=== PATIENT | female | born 1985 | race Caucasian/White ===

== ENCOUNTER 2018-01-22 21:50 | Emergency (ER) | payer BC ==
--- NOTE | 2018-01-22 22:18 | EDM.PDOC ---
ED HPI GENERAL MEDICAL PROBLEM - General Chief Complaint: General Stated Complaint: FEVER/ABDOMINAL PAIN Time Seen by Provider: 01/22/18 22:16 - History of Present Illness INITIAL COMMENTS - FREE TEXT/NARRATIVE: HISTORY AND PHYSICAL: History of present illness: Patient is a 32-year-old white female presents with a concern of left groin/hip pain she states it feels like a bony pain and denies urinary symptoms no vaginal discharge or irregular bleeding last normal menstrual period was 10 days prior she denies trauma denies back pain Review of systems: As per history of present illness and below otherwise all systems reviewed and negative. Past medical history: As per history of present illness and as reviewed below otherwise noncontributory. Surgical history: As per history of present illness and as reviewed below otherwise noncontributory. Social history: No reported history of drug or alcohol abuse. Family history: As per history of present illness and as reviewed below otherwise noncontributory. Physical exam: HEENT: Atraumatic, normocephalic, pupils reactive, negative for conjunctival pallor or scleral icterus, mucous membranes moist, throat clear, neck supple, nontender, trachea midline. Lungs: Clear to auscultation, breath sounds equal bilaterally, chest nontender. Heart: S1S2, regular, negative for clicks, rubs, or JVD. Abdomen: Soft, nondistended, nontender. Negative for masses or hepatosplenomegaly. Negative for costovertebral tenderness. Pelvis: Stable nontender. Genitourinary: Deferred. Rectal: Deferred. Extremities: Atraumatic, negative for cords or calf pain. Neurovascular unremarkable. Neuro: Awake, alert, oriented. Cranial nerves II through XII unremarkable. Cerebellum unremarkable. Motor and sensory unremarkable throughout. Exam nonfocal. Diagnostics: CBC CMP UA hCG pelvic x-ray Therapeutics: None Impression: #1 left groin/hip pain etiology be determined Definitive disposition and diagnosis as appropriate pending reevaluation and review of above. Left Groin Pain Score (Numeric/FACES): 5 - Related Data Allergies Allergy/AdvReac Type Severity Reaction Status Date / Time cefaclor [From [facility]] Allergy Hives Verified 09/27/16 21:21 antibiotic Allergy Hives Uncoded 09/27/16 21:21 Home Meds: Home Meds Levothyroxine Sodium [Synthroid] 1 tab PO DAILY 09/27/16 [History] Past Medical History [place] History: Reports: Other (See Below) Other OB/BYN History: breast biopsy. breast cyst removal Psychiatric History: Reports: None Endocrine/Metabolic History: Reports: Hypothyroidism - Infectious Disease History Infectious Disease History: Reports: Chicken Pox - Past Surgical History GI Surgical History: Reports: Other (See Below) Social & Family History - Family History Family Medical History: Noncontributory - Tobacco Use Smoking Status *Q: Never Smoker ED ROS GENERAL - Review of Systems Review Of Systems: ROS reveals no pertinent complaints other than HPI. ED EXAM, GENERAL - Physical Exam Exam: See Below (Dictation) Course - Vital Signs Last Recorded V/S: Last Vital Signs Temp 36.8 C 01/22/18 22:13 Pulse 110 H 01/22/18 22:13 Resp 12 01/22/18 22:13 BP 130/84 01/22/18 22:13 Pulse Ox 97 01/22/18 22:13 - Orders/Labs/Meds Orders: Active Orders 24 hr Category Date Time Status Pelvis 1V or 2V [CR] Stat Exams 01/22/18 22:15 Taken Labs: Laboratory Tests 01/22/18 01/22/18 01/22/18 Range/Units 22:20 22:20 22:30 WBC 15.22 H (4.0-11.0) K/uL RBC 4.19 L (4.30-5.90) M/uL Hgb 12.9 (12.0-16.0) g/dL Hct 37.1 (36.0-46.0) % MCV 88.5 (80.0-98.0) fL MCH 30.8 (27.0-32.0) pg MCHC 34.8 (31.0-37.0) g/dL RDW Std Deviation 39.9 (28.0-62.0) fl RDW Coeff of Victorino 13 (11.0-15.0) % Plt Count 269 (150-400) K/uL MPV 10.60 (7.40-12.00) fL Neut % (Auto) 69.2 (48.0-80.0) % Lymph % (Auto) 17.0 (16.0-40.0) % Carlton % (Auto) 12.6 (0.0-15.0) % Eos % (Auto) 1.0 (0.0-7.0) % Baso % (Auto) 0.2 (0.0-1.5) % Neut # (Auto) 10.5 H (1.4-5.7) K/uL Lymph # (Auto) 2.6 H (0.6-2.4) K/uL Carlton # (Auto) 1.9 H (0.0-0.8) K/uL Eos # (Auto) 0.2 (0.0-0.7) K/uL Baso # (Auto) 0.0 (0.0-0.1) K/uL Nucleated RBC % 0.0 /100WBC Nucleated RBCs # 0 K/uL Sodium (136-145) mmol/L Potassium (3.5-5.1) mmol/L Chloride (98-107) mmol/L Carbon Dioxide (21.0-32.0) mmol/L BUN (7.0-18.0) mg/dL Creatinine (0.6-1.0) mg/dL Est Cr Clr Drug Dosing mL/min Estimated GFR (MDRD) ml/min Glucose (74-106) mg/dL Calcium (8.5-10.1) mg/dL Total Bilirubin (0.2-1.0) mg/dL AST (15-37) IU/L ALT (14-63) IU/L Alkaline Phosphatase (46-116) U/L Total Protein (6.4-8.2) g/dL Albumin (3.4-5.0) g/dL Globulin (2.0-3.5) g/dL Albumin/Globulin Ratio (1.3-2.8) Urine Color YELLOW Urine Appearance CLEAR Urine pH 5.0 (5.0-8.0) Ur Specific [place] <= 1.005 (1.001-1.035) Urine Protein NEGATIVE (NEGATIVE) mg/dL Urine Glucose (UA) NEGATIVE (NEGATIVE) mg/dL Urine Ketones NEGATIVE (NEGATIVE) mg/dL Urine Occult Blood SMALL H (NEGATIVE) Urine Nitrite NEGATIVE (NEGATIVE) Urine Bilirubin NEGATIVE (NEGATIVE) Urine Urobilinogen 0.2 (<2.0) EU/dL Ur Leukocyte Esterase NEGATIVE (NEGATIVE) Urine RBC 0-2 (0-2/HPF) Urine WBC 0-1 (0-5/HPF) Ur Epithelial Cells OCCASIONAL (NONE-FEW) Urine Bacteria RARE (NEGATIVE) Urine HCG, Qual NEGATIVE (NEGATIVE) 01/22/18 Range/Units 22:30 WBC (4.0-11.0) K/uL RBC (4.30-5.90) M/uL Hgb (12.0-16.0) g/dL Hct (36.0-46.0) % MCV (80.0-98.0) fL MCH (27.0-32.0) pg MCHC (31.0-37.0) g/dL RDW Std Deviation (28.0-62.0) fl RDW Coeff of Victorino (11.0-15.0) % Plt Count (150-400) K/uL MPV (7.40-12.00) fL Neut % (Auto) (48.0-80.0) % Lymph % (Auto) (16.0-40.0) % Carlton % (Auto) (0.0-15.0) % Eos % (Auto) (0.0-7.0) % Baso % (Auto) (0.0-1.5) % Neut # (Auto) (1.4-5.7) K/uL Lymph # (Auto) (0.6-2.4) K/uL Carlton # (Auto) (0.0-0.8) K/uL Eos # (Auto) (0.0-0.7) K/uL Baso # (Auto) (0.0-0.1) K/uL Nucleated RBC % /100WBC Nucleated RBCs # K/uL Sodium 138 (136-145) mmol/L Potassium 3.7 (3.5-5.1) mmol/L Chloride 104 (98-107) mmol/L Carbon Dioxide 24.3 (21.0-32.0) mmol/L BUN 12 (7.0-18.0) mg/dL Creatinine 0.8 (0.6-1.0) mg/dL Est Cr Clr Drug Dosing 88.79 mL/min Estimated GFR (MDRD) > 60.0 ml/min Glucose 105 (74-106) mg/dL Calcium 8.9 (8.5-10.1) mg/dL Total Bilirubin 0.4 (0.2-1.0) mg/dL AST 18 (15-37) IU/L ALT 28 (14-63) IU/L Alkaline Phosphatase 81 (46-116) U/L Total Protein 7.5 (6.4-8.2) g/dL Albumin 3.3 L (3.4-5.0) g/dL Globulin 4.2 H (2.0-3.5) g/dL Albumin/Globulin Ratio 0.8 L (1.3-2.8) Urine Color Urine Appearance Urine pH (5.0-8.0) Ur Specific [place] (1.001-1.035) Urine Protein (NEGATIVE) mg/dL Urine Glucose (UA) (NEGATIVE) mg/dL Urine Ketones (NEGATIVE) mg/dL Urine Occult Blood (NEGATIVE) Urine Nitrite (NEGATIVE) Urine Bilirubin (NEGATIVE) Urine Urobilinogen (<2.0) EU/dL Ur Leukocyte Esterase (NEGATIVE) Urine RBC (0-2/HPF) Urine WBC (0-5/HPF) Ur Epithelial Cells (NONE-FEW) Urine Bacteria (NEGATIVE) Urine HCG, Qual (NEGATIVE) Departure - Departure Time of Disposition: 23:40 Disposition: Home, Self-Care 01 Condition: Good Clinical Impression: Left groin pain, Encounter for medical screening examination - Discharge Information Referrals: Mame Christian DO [Primary Care Provider] - Forms: ED Department Discharge Additional Instructions: The following information is given to patients seen in the emergency department who are being discharged to home. This information is to outline your options for follow-up care. We provide all patients seen in our emergency department with a follow-up referral. The need for follow-up, as well as the timing and circumstances, are variable depending upon the specifics of your emergency department visit. If you don't have a primary care physician on staff, we will provide you with a referral. We always advise you to contact your personal physician following an emergency department visit to inform them of the circumstance of the visit and for follow-up with them and/or the need for any referrals to a consulting specialist. The emergency department will also refer you to a specialist when appropriate. This referral assures that you have the opportunity for followup care with a specialist. All of these measure are taken in an effort to provide you with optimal care, which includes your followup. Under all circumstances we always encourage you to contact your private physician who remains a resource for coordinating your care. When calling for followup care, please make the office aware that this follow-up is from your recent emergency room visit. If for any reason you are refused follow-up, please contact the [facility] emergency department at and asked to speak to the emergency department charge nurse. [facility] [place] [id number] Follow-up primary medical doctor and/or clinic as discussed: Schedule routine appointment Motrin/Tylenol as directed return as needed as discussed - My Orders Last 24 Hours: My Active Orders 01/22/18 22:15 Pelvis 1V or 2V [CR] Stat - Assessment/Plan Last 24 Hours: My Active Orders 01/22/18 22:15 Pelvis 1V or 2V [CR] Stat
[2018-01-22 23:03] LABS: CHLORIDE,CL 104 mmol/L (98-107); SODIUM,NA 138 mmol/L (136-145)
[2018-01-23 01:16] VITALS: BP 127/83
--- NOTE | 2018-01-25 14:07 | CR ---
EXAM DATE: 01/22/18 PATIENT'S AGE: 32 Patient: WINIFRED STEINBERG Facility: [place], [place] Site . Site : 1985 Study: XRay Pelvis [id number]/23/2018 10:57:25 PM Ordering Physician: Kelsey Carrillo Final Report: INDICATION: Right groin pain, patient states feels like bone pain with no known injury TECHNIQUE: Pelvis radiograph 1 view right COMPARISON: None FINDINGS: Bones: No acute fractures or aggressive bone lesions are identified. Joints: The hip joint is unremarkable. The visualized sacroiliac joints are unremarkable in appearance. The pubic symphysis is normal in appearance. Soft tissues: Unremarkable. The visualized bowel gas pattern of the pelvis is unremarkable in appearance. No radiopaque foreign bodies are seen. IMPRESSION: 1. No acute osseous injuries or abnormalities are noted. Dictated by: Jace Stevens MD @ 01/22/2018 23:00:48 (Electronic Signature) Report Signed by Proxy. TG
== END 2018-01-22 23:58 | disposition home or self-care (01) ==
LOC: MW.ED 21:50
DX: R10.32 Left lower quadrant pain (principal); E03.9 Hypothyroidism, unspecified; Z88.1 Allergy status to other antibiotic agents; Z79.899 Other long term (current) drug therapy
CPT/HCPCS: 36415; 72170; 72170-26; 80053; 81001; 81025; 85025; 99283

== ENCOUNTER 2018-03-10 14:31 | Emergency (ER) | payer BC ==
[2018-03-10] MEDS ORDERED: Sodium Chloride 0.9% 10 ML Syringe FLUSH PRN (14:56)
[2018-03-10] MEDS ORDERED: Famotidine 20 MG/2 ML SDV IVPUSH ONE (14:56)
[2018-03-10] MEDS ORDERED: Sodium Chloride 0.9% 1,000 ML IV ONE (14:56)
[2018-03-10] MEDS ORDERED: Sodium Chloride 0.9% 2.5 ML Syringe FLUSH PRN (14:56)
[2018-03-10] MEDS ORDERED: Dicyclomine 10 MG Cap PO ONE (15:28)
[2018-03-10 15:45] LABS: CHLORIDE,CL 102 mmol/L (98-107); SODIUM,NA 138 mmol/L (136-145)
--- NOTE | 2018-03-10 17:54 | EDM.PDOC ---
ED HPI GENERAL MEDICAL PROBLEM - General Chief Complaint: Abdominal Pain Stated Complaint: ABDOMINAL PAIN Time Seen by Provider: 03/10/18 14:32 Source of Information: Reports: Patient History Limitations: Reports: No Limitations - History of Present Illness INITIAL COMMENTS - FREE TEXT/NARRATIVE: History of present illness: []Patient has had abdominal pain for 2 days and was seen at the walk-in clinic 2 days ago for it. The workup but the results are not back yet. Pain is worsening she states that it is in her upper abdomen radiating to her mid back. She denies any vomiting ,fevers, chills, urinary symptoms or diarrhea. She does not have a history of GERD and states she's not had this pain in the past. She does not have a family history of gallbladder disease. Review of systems: As per history of present illness and below otherwise all systems reviewed and negative. Past medical history: As per history of present illness and as reviewed below otherwise noncontributory. Surgical history: As per history of present illness and as reviewed below otherwise noncontributory. Social history: No reported history of drug or alcohol abuse. Family history: As per history of present illness and as reviewed below otherwise noncontributory. Physical exam: General: Well developed, well nourished in NAD HEENT: Atraumatic, normocephalic, pupils reactive, negative for conjunctival pallor or scleral icterus, mucous membranes moist, throat clear, neck supple, nontender, trachea midline. Lungs: Clear to auscultation, breath sounds equal bilaterally, chest nontender. Heart: S1S2, regular, negative for clicks, rubs, or JVD. Abdomen: Soft, nondistended, right upper quadrant and epigastric tenderness without rebound or guarding. Negative for masses or hepatosplenomegaly. Negative for costovertebral tenderness. Pelvis: Stable nontender. Genitourinary: Deferred. Rectal: Deferred. Extremities: Atraumatic, negative for cords or calf pain. Neurovascular unremarkable. Neuro: Awake, alert, oriented. Cranial nerves II through XII unremarkable. Cerebellum unremarkable. Motor and sensory unremarkable throughout. Exam nonfocal. Diagnostics: []CBC shows an elevated white count 17,000 without a shift, be due to stressed margination, chemistries are negative including normal LFTs, Radha and lipase are also normal, ultrasound of the abdomen showed cholelithiasis without cholecystitis Therapeutics: []Patient was given Bentyl and Zofran and IV Pepcid with improvement Impression: [] Cholelithiasis without cholecystitis on ultrasound Plan: []Follow-up with general surgery, decrease fatty foods, dental for pain return to ER if symptoms worsen, fevers or vomiting occur. Definitive disposition and diagnosis as appropriate pending reevaluation and review of above. Abdominal Pain Score (Numeric/FACES): 9 - Related Data Allergies Allergy/AdvReac Type Severity Reaction Status Date / Time cefaclor [From Ceclor] Allergy Hives Verified 09/27/16 21:21 antibiotic Allergy Hives Uncoded 09/27/16 21:21 Home Meds: Home Meds Levothyroxine Sodium [Synthroid] 1 tab PO DAILY 09/27/16 [History] Dicyclomine [Bentyl] 10 mg PO TID PRN #20 cap 03/10/18 [Rx] Past Medical History Cardiovascular History: Reports: None Respiratory History: Reports: None Gastrointestinal History: Reports: None Genitourinary History: Reports: None SCOUT History: Reports: Other (See Below) Other OB/BYN History: breast biopsy. breast cyst removal Musculoskeletal History: Reports: None Neurological History: Reports: None Psychiatric History: Reports: None Endocrine/Metabolic History: Reports: Hypothyroidism Hematologic History: Reports: None Immunologic History: Reports: None Oncologic (Cancer) History: Reports: None Dermatologic History: Reports: None - Infectious Disease History Infectious Disease History: Reports: Chicken Pox - Past Surgical History Head Surgeries/Procedures: Reports: None HEENT Surgical History: Reports: Oral Surgery GI Surgical History: Reports: None, Other (See Below) Female Surgical History: Reports: Breast Biopsy, Other (See Below) Other Female Surgeries/Procedures: laparoscopy to check for endometriosis Social & Family History - Family History Family Medical History: Noncontributory - Tobacco Use Smoking Status *Q: Never Smoker Second Hand Smoke Exposure: No - Caffeine Use Caffeine Use: Reports: Coffee, Energy Drinks, Soda, Tea - Recreational Drug Use Recreational Drug Use: No ED ROS GENERAL - Review of Systems Review Of Systems: See Below (See history of present illness) ED EXAM, GI/ABD - Physical Exam Exam: See Below (See history of present illness) Course - Vital Signs Last Recorded V/S: Last Vital Signs Temp 98.8 F 03/10/18 14:41 Pulse 98 03/10/18 14:41 Resp 18 03/10/18 14:41 BP 143/99 H 03/10/18 14:41 Pulse Ox 100 03/10/18 14:41 - Orders/Labs/Meds Orders: Active Orders 24 hr Category Date Time Status Abdomen Ltd [US] Stat Exams 03/10/18 15:51 Taken HCG QUALITATIVE,URINE [URCHEM] Stat Lab 03/10/18 15:05 Ordered UA W/MICROSCOPIC [URIN] Stat Lab 03/10/18 15:05 Ordered Sodium Chloride 0.9% [Saline Flush] Med 03/10/18 14:56 Active 10 ml FLUSH ASDIRECTED PRN Sodium Chloride 0.9% [Saline Flush] Med 03/10/18 14:56 Active 2.5 ml FLUSH ASDIRECTED PRN Saline Lock Insert [OM.PC] Stat Oth 03/10/18 14:56 Ordered Medication Orders Sodium Chloride (Saline Flush) 10 ml FLUSH ASDIRECTED PRN PRN Reason: Keep Vein Open Last Admin: 03/10/18 15:32 Dose: 10 ml Sodium Chloride (Saline Flush) 2.5 ml FLUSH ASDIRECTED PRN PRN Reason: Keep Vein Open Last Admin: 03/10/18 15:32 Dose: 2.5 ml Labs: Laboratory Tests 03/10/18 03/10/18 03/10/18 Range/Units 15:05 15:05 15:07 WBC 17.22 H (4.0-11.0) K/uL RBC 4.70 (4.30-5.90) M/uL Hgb 14.7 (12.0-16.0) g/dL Hct 41.7 (36.0-46.0) % MCV 88.7 (80.0-98.0) fL MCH 31.3 (27.0-32.0) pg MCHC 35.3 (31.0-37.0) g/dL RDW Std Deviation 41.3 (28.0-62.0) fl RDW Coeff of Vcitorino 13 (11.0-15.0) % Plt Count 283 (150-400) K/uL MPV 11.00 (7.40-12.00) fL Neut % (Auto) 66.2 (48.0-80.0) % Lymph % (Auto) 18.4 (16.0-40.0) % Dane % (Auto) 13.4 (0.0-15.0) % Eos % (Auto) 1.7 (0.0-7.0) % Baso % (Auto) 0.3 (0.0-1.5) % Neut # (Auto) 11.4 H (1.4-5.7) K/uL Lymph # (Auto) 3.2 H (0.6-2.4) K/uL Dane # (Auto) 2.3 H (0.0-0.8) K/uL Eos # (Auto) 0.3 (0.0-0.7) K/uL Baso # (Auto) 0.1 (0.0-0.1) K/uL Nucleated RBC % 0.0 /100WBC Nucleated RBCs # 0 K/uL Sodium (136-145) mmol/L Potassium (3.5-5.1) mmol/L Chloride (98-107) mmol/L Carbon Dioxide (21.0-32.0) mmol/L BUN (7.0-18.0) mg/dL Creatinine (0.6-1.0) mg/dL Est Cr Clr Drug Dosing mL/min Estimated GFR (MDRD) ml/min Glucose (74-106) mg/dL Calcium (8.5-10.1) mg/dL Total Bilirubin (0.2-1.0) mg/dL AST (15-37) IU/L ALT (14-63) IU/L Alkaline Phosphatase (46-116) U/L Total Protein (6.4-8.2) g/dL Albumin (3.4-5.0) g/dL Globulin (2.0-3.5) g/dL Albumin/Globulin Ratio (1.3-2.8) Lipase (73-393) U/L Urine Color YELLOW Urine Appearance CLEAR Urine pH 5.5 (5.0-8.0) Ur Specific [place] 1.010 (1.001-1.035) Urine Protein NEGATIVE (NEGATIVE) mg/dL Urine Glucose (UA) NEGATIVE (NEGATIVE) mg/dL Urine Ketones NEGATIVE (NEGATIVE) mg/dL Urine Occult Blood MODERATE (NEGATIVE) Urine Nitrite NEGATIVE (NEGATIVE) Urine Bilirubin NEGATIVE (NEGATIVE) Urine Urobilinogen 0.2 (<2.0) EU/dL Ur Leukocyte Esterase SMALL (NEGATIVE) Urine RBC 0-2 (0-2/HPF) Urine WBC 3-5 (0-5/HPF) Ur Epithelial Cells FEW (NONE-FEW) Urine Bacteria FEW (NEGATIVE) Urine HCG, Qual NEGATIVE (NEGATIVE) 03/10/18 Range/Units 15:07 WBC (4.0-11.0) K/uL RBC (4.30-5.90) M/uL Hgb (12.0-16.0) g/dL Hct (36.0-46.0) % MCV (80.0-98.0) fL MCH (27.0-32.0) pg MCHC (31.0-37.0) g/dL RDW Std Deviation (28.0-62.0) fl RDW Coeff of Victorino (11.0-15.0) % Plt Count (150-400) K/uL MPV (7.40-12.00) fL Neut % (Auto) (48.0-80.0) % Lymph % (Auto) (16.0-40.0) % Dane % (Auto) (0.0-15.0) % Eos % (Auto) (0.0-7.0) % Baso % (Auto) (0.0-1.5) % Neut # (Auto) (1.4-5.7) K/uL Lymph # (Auto) (0.6-2.4) K/uL Dane # (Auto) (0.0-0.8) K/uL Eos # (Auto) (0.0-0.7) K/uL Baso # (Auto) (0.0-0.1) K/uL Nucleated RBC % /100WBC Nucleated RBCs # K/uL Sodium 138 (136-145) mmol/L Potassium 3.3 L (3.5-5.1) mmol/L Chloride 102 (98-107) mmol/L Carbon Dioxide 24.3 (21.0-32.0) mmol/L BUN 12 (7.0-18.0) mg/dL Creatinine 0.9 (0.6-1.0) mg/dL Est Cr Clr Drug Dosing 78.93 mL/min Estimated GFR (MDRD) > 60.0 ml/min Glucose 124 H (74-106) mg/dL Calcium 9.3 (8.5-10.1) mg/dL Total Bilirubin 0.9 (0.2-1.0) mg/dL AST 18 (15-37) IU/L ALT 23 (14-63) IU/L Alkaline Phosphatase 76 (46-116) U/L Total Protein 8.1 (6.4-8.2) g/dL Albumin 4.1 (3.4-5.0) g/dL Globulin 4.0 H (2.0-3.5) g/dL Albumin/Globulin Ratio 1.0 L (1.3-2.8) Lipase 112 (73-393) U/L Urine Color Urine Appearance Urine pH (5.0-8.0) Ur Specific [place] (1.001-1.035) Urine Protein (NEGATIVE) mg/dL Urine Glucose (UA) (NEGATIVE) mg/dL Urine Ketones (NEGATIVE) mg/dL Urine Occult Blood (NEGATIVE) Urine Nitrite (NEGATIVE) Urine Bilirubin (NEGATIVE) Urine Urobilinogen (<2.0) EU/dL Ur Leukocyte Esterase (NEGATIVE) Urine RBC (0-2/HPF) Urine WBC (0-5/HPF) Ur Epithelial Cells (NONE-FEW) Urine Bacteria (NEGATIVE) Urine HCG, Qual (NEGATIVE) Meds: Medications Generic Name Dose Route Start Last Admin Trade Name Freq PRN Reason Stop Dose Admin Sodium Chloride 10 ml 03/10/18 14:56 03/10/18 15:32 Saline Flush FLUSH 10 ml ASDIRECTED PRN Administration Keep Vein Open Sodium Chloride 2.5 ml 03/10/18 14:56 03/10/18 15:32 Saline Flush FLUSH 2.5 ml ASDIRECTED PRN Administration Keep Vein Open Discontinued Medications Generic Name Dose Route Start Last Admin Trade Name Freq PRN Reason Stop Dose Admin Dicyclomine HCl 10 mg 03/10/18 15:28 03/10/18 15:38 Bentyl PO 03/10/18 15:29 10 mg ONETIME ONE Administration Famotidine 20 mg 03/10/18 14:56 03/10/18 15:32 Pepcid IVPUSH 03/10/18 14:57 20 mg ONETIME ONE Administration Sodium Chloride 1,000 mls @ 999 mls/hr 03/10/18 14:56 03/10/18 15:31 Normal Saline IV 03/10/18 15:56 999 mls/hr .Bolus ONE Administration Departure - Departure Time of Disposition: 17:52 Disposition: Home, Self-Care 01 Condition: Good Clinical Impression: Cholelithiasis without cholecystitis - Discharge Information Prescriptions: Dicyclomine [Bentyl] 10 mg PO TID PRN #20 cap PRN Reason: Pain Referrals: Mame Christian DO [Primary Care Provider] - Ainsley Rand MD [Physician] - (Next available appointment) Forms: ED Department Discharge Additional Instructions: The following information is given to patients seen in the emergency department who are being discharged to home. This information is to outline your options for follow-up care. We provide all patients seen in our emergency department with a follow-up referral. The need for follow-up, as well as the timing and circumstances, are variable depending upon the specifics of your emergency department visit. If you don't have a primary care physician on staff, we will provide you with a referral. We always advise you to contact your personal physician following an emergency department visit to inform them of the circumstance of the visit and for follow-up with them and/or the need for any referrals to a consulting specialist. The emergency department will also refer you to a specialist when appropriate. This referral assures that you have the opportunity for follow-up care with a specialist. All of these measure are taken in an effort to provide you with optimal care, which includes your follow-up. Under all circumstances we always encourage you to contact your private physician who remains a resource for coordinating your care. When calling for follow-up care, please make the office aware that this follow-up is from your recent emergency room visit. If for any reason you are refused follow-up, please contact the [facility] Emergency Department at and asked to speak to the emergency department charge nurse. [facility] - General Surgery Professional Building [address] [place] [address], [address] [place] [address] - My Orders Last 24 Hours: My Active Orders 03/10/18 14:56 Sodium Chloride 0.9% [Saline Flush] 10 ml FLUSH ASDIRECTED PRN Sodium Chloride 0.9% [Saline Flush] 2.5 ml FLUSH ASDIRECTED PRN Saline Lock Insert [OM.PC] Stat 03/10/18 15:05 HCG QUALITATIVE,URINE [URCHEM] Stat UA W/MICROSCOPIC [URIN] Stat 03/10/18 15:51 Abdomen Ltd [US] Stat - Assessment/Plan Last 24 Hours: My Active Orders 03/10/18 14:56 Sodium Chloride 0.9% [Saline Flush] 10 ml FLUSH ASDIRECTED PRN Sodium Chloride 0.9% [Saline Flush] 2.5 ml FLUSH ASDIRECTED PRN Saline Lock Insert [OM.PC] Stat 03/10/18 15:05 HCG QUALITATIVE,URINE [URCHEM] Stat UA W/MICROSCOPIC [URIN] Stat 03/10/18 15:51 Abdomen Ltd [US] Stat
[2018-03-10 18:26] VITALS: BP 114/72
--- NOTE | 2018-03-11 15:17 | US ---
EXAM DATE: 03/10/18 PATIENT'S AGE: 32 Patient: WINIFRED STEINBERG Facility: [place], [place] Site . Site : 1985 Study: US Abdomen [id number]/9/2018 5:05:20 PM Ordering Physician: Luis Felipe Guidry Final Report: HISTORY: Abdomen pain. FINDINGS: Multiple urias scale static images from a limited OB ultrasound were evaluated. There is small echogenic shadowing gallstones in the lumen of the gallbladder. No wall thickening or pericholecystic fluid is seen. The common bile duct is 3 mm. The liver parenchyma is homogeneous in appearance. No intrahepatic ductal dilatation or mass is seen. There is no fluid in Burrows`s pouch. The right kidney measures 11.6 cm and is free of hydronephrosis. The pancreatic head and body are normal. The pancreatic tail is not well seen. IMPRESSION: 1. Cholelithiasis without evidence of cholecystitis or biliary obstruction. 2. Liver, right kidney and pancreatic head and body are normal. Pancreatic tail is obscured by bowel gas. Dictated by Layne Byrne MD @ 03/10/2018 5:40:40 PM Dictated by: Layne Byrne MD @ 03/10/2018 17:40:50 (Electronic Signature) Report Signed by Proxy. TG
== END 2018-03-10 18:05 | disposition home or self-care (01) ==
LOC: MW.ED 14:31
DX: K80.20 Calculus of gallbladder without cholecystitis without obstruction (principal); E03.9 Hypothyroidism, unspecified; Z79.899 Other long term (current) drug therapy; Z88.1 Allergy status to other antibiotic agents
CPT/HCPCS: 36415; 76705; 80053; 81001; 81025; 83690; 85025; 96361; 96374; 99284; A9270; J7040

== ENCOUNTER 2018-03-12 19:23 | Emergency (ER) | payer BC ==
--- NOTE | 2018-03-12 19:42 | EDM.PDOC ---
ED HPI GENERAL MEDICAL PROBLEM - General Chief Complaint: Abdominal Pain Stated Complaint: GALLBLADDER Time Seen by Provider: 03/12/18 19:27 - History of Present Illness INITIAL COMMENTS - FREE TEXT/NARRATIVE: HISTORY AND PHYSICAL: History of present illness: The patient is a 32-year-old female who was seen an outside clinic several days ago and was also here in our emergency department on March 10 for abdominal pain and was diagnosed with cholelithiasis. On her visit here in the ED on March 10 she had labs which revealed a WBC count of 17.22 but normal liver function tests and normal lipase. On that visit she had a gallbladder ultrasound which revealed cholelithiasis without evidence of cholecystitis or biliary obstruction and the pancreatic tail was obscured by bowel gas but otherwise the pancreas looked normal. The patient was advised to eat a low-fat diet and to follow-up with surgery. She presents again this evening to the ED with persistent epigastric right upper and right back pain despite taking the medications she was prescribed which include tramadol Bentyl. The patient has had nausea all day today but no vomiting and has not had diarrhea and is in fact slightly constipated. She has only had one piece of toast and some water at approximately 2 PM and has not been able to eat anything due to the discomfort in the nausea. She has no urinary complaints and she had a negative urine test 2 days ago. Her only abdominal surgery is of a laparoscopy for diagnosis of endometriosis which she said she had a small amount at it has not progressed. She's not had any fevers chills coughing chest pain or shortness of breath at home. She was told that they did not have an opening for her to have a cholecystectomy until April 01 she does not know if she can make it that long and is here for reevaluation. Patient says that she has an appointment with the surgeon at [facility] in [place] next week to possibly get her surgery done sooner. Review of systems: As per history of present illness and below otherwise all systems reviewed and negative. Past medical history: As per history of present illness and as reviewed below otherwise noncontributory. Surgical history: As per history of present illness and as reviewed below otherwise noncontributory. Social history: No reported history of drug or alcohol abuse. Family history: As per history of present illness and as reviewed below otherwise noncontributory. Physical exam: General: Well-developed well-nourished overweight female who is nontoxic and vital signs are reviewed by me HEENT: Atraumatic, normocephalic, negative for conjunctival pallor or scleral icterus, mucous membranes moist, throat clear, neck supple, nontender, trachea midline. Lungs: Clear to auscultation, breath sounds equal bilaterally, chest nontender. Heart: S1S2, regular, negative for clicks, rubs, or JVD. No overt murmurs appreciated Abdomen: Soft, nondistended, bowel sounds are hypoactive. There is mild tenderness in the epigastrium and right upper quadrant without rebound or guarding. Negative for masses or hepatosplenomegaly. Negative for costovertebral tenderness. Pelvis: Stable nontender. Genitourinary: Deferred. Rectal: Deferred. Extremities: Atraumatic, negative for cords or calf pain. Neurovascular unremarkable. Neuro: Awake, alert, oriented. Cranial nerves II through XII unremarkable. Cerebellum unremarkable. Motor and sensory unremarkable throughout. Exam nonfocal. Diagnostics: CBC CMP amylase and lipase All testing from March 10 was reviewed Therapeutics: IV fluids Zofran Dilaudid 2044: Testing results were discussed with Dr. Rand, who saw the patient earlier this morning, and she is aware of the significant change in elevation in the liver function tests from just 2 days ago. She says that with that presentation that the patient needs to be transferred to where there is GI and ERCP capabilities. I have made phone calls to [facility] and [facility] in [place] and both GI physicians that are telecommunications clerk this weekend do not have ERCP capabilities. I discussed all testing results with the patient and the need for transfer and she states understanding. She is currently pain-free. I discussed with her the next options which would be [facility] or [facility] in [place] and she is currently deciding. Dr. Rand does not feel that antibiotics are indicated at this point as the patient does not have a fever or an elevated white cell count 2127: The patient has chosen [facility] as her hospital of choice and I have discussed this case with Dr. Sandhu the hospitalist there who accepts the patient at this time for transfer. We will push the images of the ultrasound performed 2 days ago as well as send the labs from 2 days ago along with today' s reports. The patient's vitals are stable here and she is pain-free and we will arrange for transportation. Impression: Biliary colic with newly elevated liver function tests with history of cholelithiasis rule out common bile duct stone Definitive disposition and diagnosis as appropriate pending reevaluation and review of above. abdominal pain Pain Score (Numeric/FACES): 8 - Related Data Allergies Allergy/AdvReac Type Severity Reaction Status Date / Time cefaclor [From Ceclor] Allergy Hives Verified 03/12/18 19:39 antibiotic Allergy Hives Uncoded 03/12/18 19:39 Home Meds: Home Meds Levothyroxine Sodium [Synthroid] 1 tab PO DAILY 09/27/16 [History] Dicyclomine [Bentyl] 10 mg PO TID PRN #20 cap 03/10/18 [Rx] Ondansetron HCl [Zofran] 4 mg PO ASDIRECTED 03/12/18 [History] traMADol [Ultram] 50 mg PO Q6H PRN 03/12/18 [History] Past Medical History Cardiovascular History: Reports: None Respiratory History: Reports: None Gastrointestinal History: Reports: None Genitourinary History: Reports: None 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 breast cyst removal Musculoskeletal History: Reports: None Neurological History: Reports: None Psychiatric History: Reports: None Endocrine/Metabolic History: Reports: Hypothyroidism Hematologic History: Reports: None Immunologic History: Reports: None Oncologic (Cancer) History: Reports: None Dermatologic History: Reports: None - Infectious Disease History Infectious Disease History: Reports: Chicken Pox - Past Surgical History Head Surgeries/Procedures: Reports: None HEENT Surgical History: Reports: Oral Surgery GI Surgical History: Reports: None, Other (See Below) Female Surgical History: Reports: Breast Biopsy, Other (See Below) Other Female Surgeries/Procedures: laparoscopy to check for endometriosis Social & Family History - Family History Family Medical History: Noncontributory - Caffeine Use Caffeine Use: Reports: Coffee, Energy Drinks, Soda, Tea ED ROS GENERAL - Review of Systems Review Of Systems: ROS reveals no pertinent complaints other than HPI. ED EXAM, GENERAL - Physical Exam Exam: See Below (See dictation) Course - Vital Signs Last Recorded V/S: Last Vital Signs Temp 36.9 C 03/12/18 21:27 Pulse 90 03/12/18 21:27 Resp 16 03/12/18 21:27 BP 126/60 03/12/18 21:27 Pulse Ox 100 03/12/18 21:27 - Orders/Labs/Meds Orders: Active Orders 24 hr Category Date Time Status Sodium Chloride 0.9% [Saline Flush] Med 03/12/18 19:54 Active 10 ml FLUSH ASDIRECTED PRN Sodium Chloride 0.9% [Saline Flush] Med 03/12/18 19:54 Active 2.5 ml FLUSH ASDIRECTED PRN Saline Lock Insert [OM.PC] Stat Oth 03/12/18 19:54 Ordered Medication Orders Sodium Chloride (Saline Flush) 10 ml FLUSH ASDIRECTED PRN PRN Reason: Keep Vein Open Sodium Chloride (Saline Flush) 2.5 ml FLUSH ASDIRECTED PRN PRN Reason: Keep Vein Open Labs: Laboratory Tests 03/12/18 03/12/18 Range/Units 20:05 20:05 WBC 11.57 H (4.0-11.0) K/uL RBC 4.25 L (4.30-5.90) M/uL Hgb 13.1 (12.0-16.0) g/dL Hct 37.8 (36.0-46.0) % MCV 88.9 (80.0-98.0) fL MCH 30.8 (27.0-32.0) pg MCHC 34.7 (31.0-37.0) g/dL RDW Std Deviation 41.1 (28.0-62.0) fl RDW Coeff of Victorino 13 (11.0-15.0) % Plt Count 258 (150-400) K/uL MPV 10.60 (7.40-12.00) fL Neut % (Auto) 66.3 (48.0-80.0) % Lymph % (Auto) 20.7 (16.0-40.0) % [place] % (Auto) 10.1 (0.0-15.0) % Eos % (Auto) 2.4 (0.0-7.0) % Baso % (Auto) 0.5 (0.0-1.5) % Neut # (Auto) 7.7 H (1.4-5.7) K/uL Lymph # (Auto) 2.4 (0.6-2.4) K/uL [place] # (Auto) 1.2 H (0.0-0.8) K/uL Eos # (Auto) 0.3 (0.0-0.7) K/uL Baso # (Auto) 0.1 (0.0-0.1) K/uL Nucleated RBC % 0.0 /100WBC Nucleated RBCs # 0 K/uL Sodium 139 (136-145) mmol/L Potassium 3.4 L (3.5-5.1) mmol/L Chloride 104 (98-107) mmol/L Carbon Dioxide 25.6 (21.0-32.0) mmol/L BUN 14 (7.0-18.0) mg/dL Creatinine 0.9 (0.6-1.0) mg/dL Est Cr Clr Drug Dosing 78.93 mL/min Estimated GFR (MDRD) > 60.0 ml/min Glucose 119 H (74-106) mg/dL Calcium 8.8 (8.5-10.1) mg/dL Total Bilirubin 2.5 H (0.2-1.0) mg/dL AST 284 H (15-37) IU/L ALT 533 H (14-63) IU/L Alkaline Phosphatase 141 H (46-116) U/L Total Protein 7.5 (6.4-8.2) g/dL Albumin 3.8 (3.4-5.0) g/dL Globulin 3.7 H (2.0-3.5) g/dL Albumin/Globulin Ratio 1.0 L (1.3-2.8) Amylase 36 (25-115) U/L Lipase 108 (73-393) U/L Meds: Medications Generic Name Dose Route Start Last Admin Trade Name Freq PRN Reason Stop Dose Admin Sodium Chloride 10 ml 03/12/18 19:54 Saline Flush FLUSH ASDIRECTED PRN Keep Vein Open Sodium Chloride 2.5 ml 03/12/18 19:54 Saline Flush FLUSH ASDIRECTED PRN Keep Vein Open Discontinued Medications Generic Name Dose Route Start Last Admin Trade Name Freq PRN Reason Stop Dose Admin Hydromorphone HCl 1 mg 03/12/18 19:54 03/12/18 20:11 Dilaudid IVPUSH 03/12/18 19:55 0.5 mg ONETIME ONE Administration Sodium Chloride 1,000 mls @ 999 mls/hr 03/12/18 19:54 03/12/18 20:09 Normal Saline IV 03/12/18 20:54 999 mls/hr STAT ONE Administration Ondansetron HCl 4 mg 03/12/18 19:54 03/12/18 20:10 Zofran IVPUSH 03/12/18 19:55 4 mg ONETIME ONE Administration Departure - Departure Time of Disposition: 21:32 Disposition: DC/Tfer to Acute Hospital 02 Condition: Good Clinical Impression: Biliary colic, Elevated liver function tests, Common bile duct stone - Discharge Information Referrals: PCP,None [Primary Care Provider] - Forms: ED Department Discharge - My Orders Last 24 Hours: My Active Orders 03/12/18 19:54 Sodium Chloride 0.9% [Saline Flush] 10 ml FLUSH ASDIRECTED PRN Sodium Chloride 0.9% [Saline Flush] 2.5 ml FLUSH ASDIRECTED PRN Saline Lock Insert [OM.PC] Stat - Assessment/Plan Last 24 Hours: My Active Orders 03/12/18 19:54 Sodium Chloride 0.9% [Saline Flush] 10 ml FLUSH ASDIRECTED PRN Sodium Chloride 0.9% [Saline Flush] 2.5 ml FLUSH ASDIRECTED PRN Saline Lock Insert [OM.PC] Stat
[2018-03-12] MEDS ORDERED: HYDROmorphone 2 MG/ML SDV IVPUSH ONE (19:54)
[2018-03-12] MEDS ORDERED: Sodium Chloride 0.9% 1,000 ML IV ONE (19:54)
[2018-03-12] MEDS ORDERED: Sodium Chloride 0.9% 10 ML Syringe FLUSH PRN (19:54)
[2018-03-12] MEDS ORDERED: Ondansetron 4 MG/2 ML SDV IVPUSH ONE ×2 (19:54→23:12)
[2018-03-12] MEDS ORDERED: Sodium Chloride 0.9% 2.5 ML Syringe FLUSH PRN (19:54)
[2018-03-12 20:37] LABS: CHLORIDE,CL 104 mmol/L (98-107); SODIUM,NA 139 mmol/L (136-145)
[2018-03-12 21:28] VITALS: BP 126/60
[2018-03-12] MEDS ORDERED: Dextrose 5%-0.45% NaCl 1,000 ML IV SCH (22:00)
== END 2018-03-12 23:30 ==
LOC: MW.ED 19:23
DX: K80.70 Calculus of gallbladder and bile duct without cholecystitis without obstruction (principal); R94.5 Abnormal results of liver function studies; E03.9 Hypothyroidism, unspecified; Z88.1 Allergy status to other antibiotic agents; Z79.899 Other long term (current) drug therapy; R79.89 Other specified abnormal findings of blood chemistry
CPT/HCPCS: 36415; 80053; 82150; 83690; 85025; 96361; 96365; 96375; 96376; 99285; J1170; J2405; J7040; J7042; 99283

== ENCOUNTER 2019-09-28 13:56 | Emergency (ER) | payer BC ==
--- NOTE | 2019-09-28 14:28 | EDM.PDOC ---
ED HPI GENERAL MEDICAL PROBLEM - General Chief Complaint: General Stated Complaint: SHORTNESS OF BREATHE Time Seen by Provider: 09/28/19 14:23 - History of Present Illness INITIAL COMMENTS - FREE TEXT/NARRATIVE: HISTORY AND PHYSICAL: History of present illness: Patient 34-year-old female presents return of shortness of breath and dizziness has been over last week she had some lip centeredness summary was seen by her primary medical doctor suggests this may be related to anxiety no fever chills no chest pain vomiting diarrhea Review of systems: As per history of present illness and below otherwise all systems reviewed and negative. Past medical history: As per history of present illness and as reviewed below otherwise noncontributory. Surgical history: As per history of present illness and as reviewed below otherwise noncontributory. Social history: No reported history of drug or alcohol abuse. Family history: As per history of present illness and as reviewed below otherwise noncontributory. Physical exam: HEENT: Atraumatic, normocephalic, pupils reactive, negative for conjunctival pallor or scleral icterus, mucous membranes moist, throat clear, neck supple, nontender, trachea midline. Lungs: Clear to auscultation, breath sounds equal bilaterally, chest nontender. Heart: S1S2, regular, negative for clicks, rubs, or JVD. Abdomen: Soft, nondistended, nontender. Negative for masses or hepatosplenomegaly. Negative for costovertebral tenderness. Pelvis: Stable nontender. Genitourinary: Deferred. Rectal: Deferred. Extremities: Atraumatic, negative for cords or calf pain. Neurovascular unremarkable. Neuro: Awake, alert, oriented. Cranial nerves II through XII unremarkable. Cerebellum unremarkable. Motor and sensory unremarkable throughout. Exam nonfocal. Diagnostics: EKG chest x-ray Therapeutics: None Impression: #1 medical screening exam #2 history of dyspnea/dizziness Definitive disposition and diagnosis as appropriate pending reevaluation and review of above. 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 breast cyst removal Musculoskeletal History: Reports: None Neurological History: Reports: None Psychiatric History: Reports: None Endocrine/Metabolic History: Reports: Hypothyroidism Hematologic History: Reports: None Immunologic History: Reports: None Oncologic (Cancer) History: Reports: None Dermatologic History: Reports: None - Infectious Disease History Infectious Disease History: Reports: Chicken Pox - Past Surgical History Head Surgeries/Procedures: Reports: None HEENT Surgical History: Reports: Oral Surgery GI Surgical History: Reports: None, Other (See Below) Female Surgical History: Reports: Breast Biopsy, Other (See Below) Other Female Surgeries/Procedures: laparoscopy to check for endometriosis Social & Family History - Family History Family Medical History: Noncontributory - Tobacco Use Smoking Status *Q: Former Smoker Used Tobacco, but Quit: Yes Month/Year Tobacco Last Used: 2016 - Caffeine Use Caffeine Use: Reports: Coffee, Energy Drinks, Soda, Tea - Recreational Drug Use Recreational Drug Use: No ED ROS GENERAL - Review of Systems Review Of Systems: Comprehensive ROS is negative, except as noted in HPI. ED EXAM, GENERAL - Physical Exam Exam: See Below (See dictation) Course - Vital Signs Last Recorded V/S: Last Vital Signs Temp 36.7 C 09/28/19 14:20 Pulse 91 09/28/19 14:20 Resp 18 09/28/19 14:20 BP 138/87 09/28/19 14:20 Pulse Ox 98 09/28/19 14:20 - Orders/Labs/Meds Orders: Active Orders 24 hr Category Date Time Status EKG Documentation Completion [RC] STAT Care 09/28/19 14:26 Active Chest 1V Frontal [CR] Stat Exams 09/28/19 14:26 Taken Labs: Laboratory Tests 09/28/19 09/28/19 Range/Units 14:22 14:22 Urine Color YELLOW Urine Appearance SLT CLOUDY Urine pH 6.0 (5.0-8.0) Ur Specific Mertens 1.025 (1.001-1.035) Urine Protein NEGATIVE (NEGATIVE) mg/dL Urine Glucose (UA) NEGATIVE (NEGATIVE) mg/dL Urine Ketones NEGATIVE (NEGATIVE) mg/dL Urine Occult Blood NEGATIVE (NEGATIVE) Urine Nitrite NEGATIVE (NEGATIVE) Urine Bilirubin NEGATIVE (NEGATIVE) Urine Urobilinogen 0.2 (<2.0) EU/dL Ur Leukocyte Esterase NEGATIVE (NEGATIVE) Urine HCG, Qual NEGATIVE (NEGATIVE) Departure - Departure Time of Disposition: 16:13 Disposition: Home, Self-Care 01 Condition: Good Clinical Impression: Dizziness, Dyspnea, Encounter for medical screening examination - Discharge Information Referrals: Mame Christian DO [Primary Care Provider] - Forms: ED Department Discharge Additional Instructions: The following information is given to patients seen in the emergency department who are being discharged to home. This information is to outline your options for follow-up care. We provide all patients seen in our emergency department with a follow-up referral. The need for follow-up, as well as the timing and circumstances, are variable depending upon the specifics of your emergency department visit. If you don't have a primary care physician on staff, we will provide you with a referral. We always advise you to contact your personal physician following an emergency department visit to inform them of the circumstance of the visit and for follow-up with them and/or the need for any referrals to a consulting specialist. The emergency department will also refer you to a specialist when appropriate. This referral assures that you have the opportunity for followup care with a specialist. All of these measure are taken in an effort to provide you with optimal care, which includes your followup. Under all circumstances we always encourage you to contact your private physician who remains a resource for coordinating your care. When calling for followup care, please make the office aware that this follow-up is from your recent emergency room visit. If for any reason you are refused follow-up, please contact the [facility] emergency department at and asked to speak to the emergency department charge nurse. Follow-up primary medical doctor return as needed as discussed - My Orders Last 24 Hours: My Active Orders 09/28/19 14:26 EKG Documentation Completion [RC] STAT Chest 1V Frontal [CR] Stat - Assessment/Plan Last 24 Hours: My Active Orders 09/28/19 14:26 EKG Documentation Completion [RC] STAT Chest 1V Frontal [CR] Stat
[2019-09-28 16:26] VITALS: BP 116/68; PULSE 72
--- NOTE | 2019-09-28 16:41 | CR ---
Indication: Shortness of breath Technique: Chest 1 view Comparison: 09/27/2016 Findings/Impression: Cardiovascular and mediastinum: Heart size and vasculature are normal in caliber and appearance. Mediastinum is within normal limits. Lungs and pleural space: Mild elevation of the right hemidiaphragm. No consolidation or pleural effusions. Bones and soft tissues: No significant findings. Dictated by Gildrado Dockery MD @ 09/28/2019 4:40:55 PM Dictated by: Gildardo Dockery MD @ 09/28/2019 16:41:08 (Electronically Signed)
== END 2019-09-28 16:26 | disposition home or self-care (01) ==
LOC: MW.ED 13:56
DX: R42 Dizziness and giddiness (principal); R06.02 Shortness of breath; E03.9 Hypothyroidism, unspecified; Z79.890 Hormone replacement therapy; Z88.1 Allergy status to other antibiotic agents
CPT/HCPCS: 71045; 71045-26; 81003; 81025; 93005; 99285-25

== ENCOUNTER 2021-01-29 10:28 | Day surgery (SDC) | payer BC ==
[~2021-01-29 10:28] MED LIST: Lactated Ringers 1,000 ML IV SCH; Sodium Chloride 0.9% 10 ML SDV IV PRN; Sodium Chloride 0.9% 10 ML Syringe FLUSH PRN; Sodium Chloride 0.9% 2.5 ML Syringe FLUSH PRN
[2021-01-29] MEDS ORDERED: Ondansetron 4 MG/2 ML SDV ONE (11:26)
[2021-01-29] MEDS ORDERED: Midazolam 1 MG/ML 2 ML SDV ONE (11:27)
[2021-01-29] MEDS ORDERED: fentaNYL 100 MCG/2 ML SDV ONE (11:27)
[2021-01-29] MEDS ORDERED: Propofol 200 MG/20 ML SDV ONE (11:27)
[2021-01-29] MEDS ORDERED: Ketorolac 30 MG/ML SDV ONE (11:27)
[2021-01-29] MEDS ORDERED: Glycopyrrolate 0.2 MG/ML SDV ONE (11:27)
[2021-01-29] MEDS ORDERED: Dexamethasone 4 MG/ML 5 ML MDV ONE (11:27)
--- NOTE | 2021-01-29 11:28 | PCM.PREANE ---
Preanesthetic Assessment - Anesthesia/Transfusion/Family Hx Anesthesia History: Prior Anesthesia Reaction Other Type of Anesthesia Reaction Comment: became panicky when awakening from ERCP Transfusion History: No Prior Transfusion(s) - Physical Assessment NPO Status Date: 01/29/21 NPO Status Time: 00:05 Vital Signs: Last Vital Signs Temp 36.2 C 01/29/21 10:35 Pulse 85 01/29/21 10:35 Resp 15 01/29/21 10:35 BP 135/85 01/29/21 10:35 Pulse Ox 98 01/29/21 10:35 Height: 1.63 m Weight: 95.254 kg ASA Class: 1 - Lab Values: Laboratory Last Values Urine HCG, Qual NEGATIVE (NEGATIVE) 01/29/21 10:40 - Allergies Allergies/Adverse Reactions: Allergies Allergy/AdvReac Type Severity Reaction Status Date / Time cefaclor [From Ceclor] Allergy Hives Verified 01/23/21 09:40 cefdinir [From Omnicef] Allergy Hives Verified 01/23/21 09:40 - Acknowledgements Anesthesia Type Planned: General Anesthesia Pt an Appropriate Candidate for the Planned Anesthesia: Yes Alternatives and Risks of Anesthesia Discussed w Pt/Guardian: Yes Pt/Guardian Understands and Agrees with Anesthesia Plan: Yes PreAnesthesia Questionnaire HEENT History: Reports: Other (See Below) Other HEENT History: wears contacts Cardiovascular History: Reports: None Respiratory History: Reports: Other (See Below) Other Respiratory History: possible Asthma- just given inhaler and has only used it once Gastrointestinal History: Reports: Cholelithiasis, GERD Genitourinary History: Reports: None 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 breast cyst removal Musculoskeletal History: Reports: None Neurological History: Reports: None Psychiatric History: Reports: None Endocrine/Metabolic History: Reports: Hypothyroidism, Obesity/BMI 30+ Hematologic History: Reports: None Immunologic History: Reports: None Oncologic (Cancer) History: Reports: None Dermatologic History: Reports: None - Infectious Disease History Infectious Disease History: Reports: Chicken Pox - Past Surgical History Head Surgeries/Procedures: Reports: None HEENT Surgical History: Reports: Oral Surgery Other HEENT Surgeries/Procedures: wisdom teeth removed GI Surgical History: Reports: Cholecystectomy, ERCP Female Surgical History: Reports: Other (See Below) Other Female Surgeries/Procedures: pelvic Laparoscopy x2 - SUBSTANCE USE Tobacco Use Status *Q: Former Tobacco User Tobacco Use Within Last Twelve Months: No Recreational Drug Use History: No - HOME MEDS Home Medications: Home Meds Esomeprazole Magnesium 20 mg PO QAM 09/28/19 [History] Levothyroxine 175 mcg PO BEDTIME 09/28/19 [History] B-Complex with Vitamin C [Vitamin B Complex-Vitamin C] 1 tab PO DAILY 01/23/21 [History] Fluticasone Furoate [Arnuity Ellipta] 1 puff INH ASDIRECTED PRN 01/23/21 [History] Magnesium 200 mg PO DAILY 01/23/21 [History] Multivitamin 1 tab PO DAILY 01/23/21 [History] Sertraline [Zoloft] 25 mg PO QAM 01/23/21 [History] Turmeric/Turmeric Root Extract [Turmeric 450-50 mg Capsule] 1 cap PO DAILY 01/23/21 [History] - CURRENT (IN HOUSE) MEDS Current Meds: Current Medications Lactated Ringer's (Ringers, Lactated) 1,000 mls @ 125 mls/hr IV ASDIRECTED EDIN Sodium Chloride (Sodium Chloride 0.9% 10 Ml Sdv) 10 ml IV ASDIRECTED PRN PRN Reason: IV Use Sodium Chloride (Sodium Chloride 0.9% 10 Ml Syringe) 10 ml FLUSH ASDIRECTED PRN PRN Reason: Keep Vein Open Sodium Chloride (Sodium Chloride 0.9% 2.5 Ml Syringe) 2.5 ml FLUSH ASDIRECTED PRN PRN Reason: Keep Vein Open
[2021-01-29] MEDS ORDERED: Clindamycin Phosphate in D5W 50 ML ONE (11:30)
[2021-01-29] MEDS ORDERED: Bupivacaine 0.5% 30 ML SDV ONE (11:30)
[2021-01-29] MEDS ORDERED: ePHEDrine 50 MG/ML SDV ONE (12:11)
--- NOTE | 2021-01-29 12:32 | PCM.OPNOTE ---
- General Post-Op/Procedure Note Date of Surgery/Procedure: 01/29/21 Operative Procedure(s): Exam under anesthesia, proctoscopy Findings: Grade II left posterior hemorrhoidal column, small posterior midline anal fissure Pre Op Diagnosis: Perianal pain, perianal abscess Post-Op Diagnosis: Grade II hemorrhoid, posterior midline fissure Anesthesia Technique: General LMA Primary Surgeon: Ainsley Rand Fluid Replacement, Intraop: 800 EBL in mLs: 1 Condition: Good
[2021-01-29 13:17] VITALS: PULSE 71
--- NOTE | 2021-01-29 13:33 | PCM.POSTAN ---
POST ANESTHESIA ASSESSMENT - MENTAL STATUS Mental Status: Alert (no anesthesia complications), Oriented - VITAL SIGNS Vital Signs: Last Vital Signs Temp 98.2 F 01/29/21 12:44 Pulse 71 01/29/21 13:14 Resp 14 01/29/21 13:14 BP 97/56 L 01/29/21 13:14 Pulse Ox 95 01/29/21 13:14 - RESPIRATORY Respiratory Status: Respiratory Rate WNL, Airway Patent, O2 Saturation Stable - CARDIOVASCULAR CV Status: Pulse Rate WNL, Blood Pressure Stable - GASTROINTESTINAL GI Status: No Symptoms - POST OP HYDRATION Hydration Status: Adequate & Stable
--- NOTE | 2021-01-29 13:48 | PCM48HPAN ---
Post Anesthesia Note - EVALUATION WITHIN 48HRS OF ANESTHETIC Vital Signs in Normal Range: Yes Patient Participated in Evaluation: Yes Respiratory Function Stable: Yes Airway Patent: Yes Cardiovascular Function Stable: Yes Hydration Status Stable: Yes Pain Control Satisfactory: Yes Nausea and Vomiting Control Satisfactory: Yes Mental Status Recovered: Yes Vital Signs: Last Vital Signs Temp 98.2 F 01/29/21 12:44 Pulse 71 01/29/21 13:14 Resp 14 01/29/21 13:14 BP 97/56 L 01/29/21 13:14 Pulse Ox 95 01/29/21 13:14 - COMMENTS/OBSERVATIONS Free Text/Narrative:: no anesthetic complications
[2021-01-29 13:59] VITALS: BP 92/57
--- NOTE | 2021-01-29 19:36 | OR ---
SURGEON: WINIFRED FRANZ MD DATE OF PROCEDURE: 01/29/2021 PREOPERATIVE DIAGNOSIS: History of perianal abscess, perianal pain. POSTOPERATIVE DIAGNOSIS: Grade 2 hemorrhoids, anal fissure. PROCEDURE PERFORMED: Diagnostic exam under anesthesia. ANESTHESIA: General LMA. FLUIDS: 800 mL of crystalloid. EBL: 1 mL. FINDINGS: Superficial posterior anal fissure, grade 2 left lateral hemorrhoid. COMPLICATIONS: None. INDICATIONS: The patient is a 35-year-old female who has a history of a perianal abscess. This was never drained but managed conservatively with antibiotics. She continues to have intermittent discomfort in the area. An MRI was performed that showed a small 1 x 0.4 cm fluid collection in the left anterior perianal space consistent with a resolving perianal abscess. The patient continues to have intermittent discomfort. The decision was made to perform an exam under anesthesia with possible incision and drainage of a perianal abscess versus fistulotomy versus seton placement. I explained the procedure and the possible perioperative courses. I explained the risks including bleeding, infection, or damage to surrounding structures. She verbalized understanding and wishes to proceed. PROCEDURE IN DETAIL: The patient was brought into the OR and placed on the OR table in supine position. A time-out was completed verifying the patient's name, age, date of , allergies, and procedure to be performed. General LMA anesthesia was induced. The patient was then placed into a left lateral decubitus position making sure to secure the patient to the table and appropriately pad all bony surfaces. The buttocks were prepped and draped in usual standard fashion. I performed a digital rectal exam. The digital rectal exam was normal. A well lubricated bivalve proctoscope was inserted into the anal canal. I closely inspected the anal canal mucosa. Along the posterior midline, there was a small superficial anal fissure. This did not have any changes that would suggest that it is chronic. The patient did have a grade 2 left lateral hemorrhoid. This was slightly posterior. I palpated the anoderm as well as the left anal canal and did not feel any areas of fluctuance or fullness to suggest an abscess. I did not palpate any evidence of a fistula. Using a 25-gauge needle on an empty syringe, I aspirated circumferentially around the left side of the anus trying to see if there was an undrained fluid collection anywhere. I did this twice and no fluid was aspirated. I anesthetized the anoderm circumferentially with 0.5% Marcaine plain. Since there were no other findings, the procedure was then completed. The patient was placed back in the supine position and taken to PACU in stable condition. All counts were complete and correct at the end of the case. ISABEL / RANDY /[id number]
== END 2021-01-29 13:55 | disposition home or self-care (01) ==
LOC: MW.SDS 10:28 → EDSTATUS 12:30 → MW.SDS 13:55
PROVIDERS: ATTEND Surgery
DX: K64.1 Second degree hemorrhoids (principal); K60.2 Anal fissure, unspecified; Z87.19 Personal history of other diseases of the digestive system
CPT/HCPCS: 45990; 81025; J0131; J1100; J1885; J2250; J2405; J2704; J3010; J3490; J7120; 00902